=== PATIENT | male | born 1975 | race Caucasian/White ===

== ENCOUNTER 2017-06-01 11:07 | Outpatient (CLI) | payer OTHER | END 2017-06-01 11:08 | disposition home or self-care (01) | LOC: SC 11:07 | PROVIDERS: ATTEND Internal Medicine Pulmonary Disease | DX: G47.33 Obstructive sleep apnea (adult) (pediatric) (principal) | CPT/HCPCS: 99203; 99212 ==

== ENCOUNTER 2018-07-04 14:59 | Outpatient (CLI) | payer OTHER | END 2018-07-04 15:00 | disposition home or self-care (01) | LOC: SC 14:59 | PROVIDERS: ATTEND Internal Medicine Pulmonary Disease | DX: G47.33 Obstructive sleep apnea (adult) (pediatric) (principal) | CPT/HCPCS: 99212; 99213 ==

== ENCOUNTER 2020-09-06 15:59 | Outpatient (CLI) | payer OTHER ==
--- NOTE | 2020-09-06 16:36 | SLEEP CARE CONSULTATION ---
Information from patient questionnaire entered by Oralia Fink. I have reviewed and concur with the information entered by Oralia Fink. This document represents the service I personally performed and the decisions made by me, Pao Real ARNP. History of Present Illness Service Date and Time: 09/06/2020 1559 Previous diagnosis: Moderate, Obstructive Sleep Apnea-Hypopnea Syndrome AHI: 28.5 (In 2016) Reason for follow up: annual Equipment type: BiPAP Equipment obtained from: [facility] (getting supplies as needed) Mask style: Nasal Backup mask available: Yes (old mask) Last cushion change: 2 weeks ago Prior sleep studies: Yes Year and Where: 2016 [facility] HPI additional information: ИВАН ROMERO was diagnosed to have moderate, AHI 28.5, obstructive sleep apnea- hypopnea syndrome and returned today for BIPAP therapy annual follow-up. CPAP Compliance Data - Data Reviewed with Patient Average duration of nightly device use: 6 hours 2 minutes Compliance rate %: 98 Current pressure setting (cmH2O): 14/7 Average residual AHI: 1.8 Subjective Patient concerns: reports: aerophagia (occasional, once a week maybe). denies: mask discomfort, air blowing in eyes, mask leak noise, condensation in mask/hose, nasal congestion, dry mouth, nose, throat, epistaxis, other Observed to snore while using device: No Current pressure setting perceived as: comfortable On therapy, patient: reports: sleeping better, awakening more refreshed, being more awake and alert during the day, more rested overall. denies: drowsiness while driving Initial [place] Sleepiness Scale score: 5 (In 2018) Current [place] Sleepiness Scale score: 6 Allergies and Home Medications Home medication list reviewed: Yes (no new meds) Review of Systems Review of systems same as previous: No (Took bone fragment in skin off right elbow area; ganglion cyst removed) Physical Exam Heart Rate: 88 O2 Saturation: 97 Height: 5 ft 8 in Weight: 214 lb 9.6 oz Body Mass Index: 32.6 BMI Classification: Obese Impression and Plan 1. Obstructive Sleep Apnea-Hypopnea Syndrome, moderate, with good treatment compliance and good apnea control. On BIPAP therapy, the patient has better sleep quality and is more rested overall. Patient is satisfied with his treatment and intends to continue BIPAP therapy long-term. It looks like he is eligible for an update of his device in October of this year and patient was informed of this. He will contact us if he would like to update his machine at that time. Patient has lost about 10 pounds and is trying to continue to lose weight. He has been making better food choices and increasing his activity. I encouraged him to continue to try to lose weight. Patient's apnea severity and rationale for treatment to reduce apnea, improve sleep quality and reduce cardiovascular and cerebrovascular events was reviewed. I also reviewed the benefit of consistent device use of BIPAP for hypertension, cardiac disease, and gastric reflux. * Continue BIPAP pressure at 14/7 cmH2O * Notify me if snoring with mask or feeling that the pressure is too much or too little * Continue to try to lose weight * Call this office if any problems using BIPAP * Return for follow up in 1 year, or sooner if concerns arise Counseling Topics: Spare mask, Weight loss health impact Visit Type: In Office Time Spent with Patient (minutes): 16 Provider Statement: I spent 100% of the Face to Face Visit with the patient with greater than 50% spent counseling the patient and coordination of care.
== END 2020-09-06 16:00 | disposition home or self-care (01) ==
LOC: SC 15:59
PROVIDERS: ATTEND Nurse Practitioner Family
DX: G47.33 Obstructive sleep apnea (adult) (pediatric) (principal); E66.9 Obesity, unspecified; Z68.32 Body mass index [BMI] 32.0-32.9, adult
CPT/HCPCS: 99212

== ENCOUNTER 2021-11-12 16:01 | Outpatient (CLI) | payer OTHER ==
[2021-11-12 16:40] VITALS: BP 160/100
--- NOTE | 2021-11-12 16:40 | SLEEP CARE CONSULTATION ---
Information from patient questionnaire entered by Susan Castillo. I have reviewed and concur with the information entered by Susan Castillo. This document represents the service I personally performed and the decisions made by me, Pao Real ARNP. History of Present Illness Service Date and Time: 11/12/2021 1601 Previous diagnosis: Moderate, Obstructive Sleep Apnea-Hypopnea Syndrome AHI: 28.5 (In 2015) Reason for follow up: annual (LAST SEEN 09/18) Equipment type: BiPAP (RESMED) Equipment obtained from: [facility] (getting supplies as needed) Mask style: Nasal Backup mask available: Yes (other mask) Last cushion change: 1 week Prior sleep studies: Yes Year and Where: 2015 [facility] Lab HPI additional information: ИВАН ROMERO was diagnosed to have moderate, AHI 28.5, obstructive sleep apnea- hypopnea syndrome and returned today for BIPAP therapy annual follow-up. Sleep Study - Results Prior sleep studies: Yes Year and Where: 2015 [facility] CPAP Compliance Data - Data Reviewed with Patient Average duration of nightly device use: 6 hours, 16 minutes Compliance rate %: 99 (05/17/21 to 11/12/21; 179/180 days used) Current pressure setting (cmH2O): 14/7, 4 cmH2O support Average residual AHI: 1.9 Average large leak: 7.6 L/min Subjective Missed days of use due to: reports: other (power outages) Patient concerns: reports: aerophagia (excessive gas at night; improves with drinking water before bed). denies: mask discomfort, air blowing in eyes, mask leak noise, condensation in mask/hose, nasal congestion, dry mouth, nose, throat, epistaxis Observed to snore while using device: No Current pressure setting perceived as: comfortable On therapy, patient: reports: sleeping better, awakening more refreshed, being more awake and alert during the day, more rested overall. denies: drowsiness while driving Initial [place] Sleepiness Scale score: 5 (In 2018) Current [place] Sleepiness Scale score: 3 (11/12/21) Allergies and Home Medications Drug allergies reviewed: Yes (NKDA) Home medication list reviewed: Yes (no changes) Review of Systems Review of systems same as previous: Yes (no changes) Physical Exam Vital signs obtained and entered by: N.BYNG, MA Blood Pressure: 160/100 (left arm ) Cuff size: regular Heart Rate: 84 O2 Saturation: 97 Height: 5 ft 8 in Weight: 207 lb Weight change since last visit: 7 lb loss Body Mass Index: 31.4 BMI Classification: Obese Impression and Plan 1. Obstructive Sleep Apnea-Hypopnea Syndrome, moderate, with good treatment compliance and good apnea control. On BIPAP therapy, the patient has better sleep quality and is more rested overall. Patient states he has had some mild bloating in the morning and excess gas at night. He states if he drinks water before going to bed he does not have this as much. He was encouraged to monitor this and we will see if we need to make any changes once he gets a new machine. He last update his [employer] in 10/2015. The patients CPAP is over 5 years old and of reasonable use. Thus, the CPAP will be updated. A DWO prescription will be made. Compliance guidelines for new device and follow up discussed. Patient's apnea severity and rationale for treatment to reduce apnea, improve sleep quality and reduce cardiovascular and cerebrovascular events was reviewed. I also reviewed the benefit of consistent device use of BIPAP for hypertension, cardiac disease and gastric reflux. 2. Obesity, unspecified. Currently patients BMI is 31.4. Patient has lost 7 pounds since his last visit. He states he is focusing on it and is trying to lose weight with diet and exercise. Obesity increases the risk of apnea, CPAP pressure requirements and overall health risks especially cardiovascular and diabetes. Thus patient is advised to continue to try to lose weight. 3. Elevated blood pressure in patient with hypertension. Patient's blood pressure today was elevated at 160/100. He denies chest pain, shortness of breath, headaches or dizziness. He states it has been elevated when he is at the doctor's office but when he takes it at home at rest it is in 130s over 80s. Patient was advised to monitor his blood pressure and to report back to his PCP. He voiced understanding. * Continue BIPAP pressure at 14/7 cmH2O * Update BIPAP * Update supplies * Notify me if snoring with mask or feeling that the pressure is too much or too little * Continue to try to lose weight * Call this office if any problems using BIPAP * Return for follow up one month after obtaining new device, or sooner if concerns arise Counseling Topics: Spare mask, Weight loss health impact Visit Type: In Office Time Spent with Patient (minutes): 22 Provider Statement: I spent 100% of the Face to Face Visit with the patient with greater than 50% spent counseling the patient and coordination of care.
== END 2021-11-12 16:02 | disposition home or self-care (01) ==
LOC: SC 16:01
PROVIDERS: ATTEND Nurse Practitioner Family
DX: G47.33 Obstructive sleep apnea (adult) (pediatric) (principal); E66.9 Obesity, unspecified; Z68.31 Body mass index [BMI] 31.0-31.9, adult; I10 Essential (primary) hypertension
CPT/HCPCS: 99212; 99213

== ENCOUNTER 2023-02-02 13:24 | Outpatient (CLI) | payer OTHER ==
--- NOTE | 2023-02-02 13:54 | Sleep Patient Instructions ---
Sleep Center Visit Summary - Patient Visit Information Reason for Visit: Annual Visit - Patient Instructions Additional Instructions: You will continue with BIPAP therapy with pressure set at 14/7 cmH2O. A supply prescription will be updated with your DME. We encourage you to continue to try to lose weight. Please follow up with the sleep care office in 1 year. - Clinic Information Contact: [facility] [address] [place] [address] [email or web address] T: [phone]
--- NOTE | 2023-02-02 13:56 | SLEEP CARE CONSULTATION ---
Information from patient questionnaire entered by Veronica Frey. I have reviewed and concur with the information entered by Veronica Frey. This document represents the service I personally performed and the decisions made by me, Pao Real ARNP. History of Present Illness Service Date and Time: 02/02/2023 1324 Previous diagnosis: Moderate, Obstructive Sleep Apnea-Hypopnea Syndrome AHI: 28.5 (In 2015) Reason for follow up: annual (LAST SEEN 10/2021) Equipment type: BiPAP (RESMED AirCurve 10 s/u ) Equipment obtained from: [facility] (getting supplies as needed) Mask style: Nasal Backup mask available: Yes Last cushion change: 1-2 weeks Prior sleep studies: Yes Year and Where: 2015 [facility] HPI additional information: ИВАН ROMERO was diagnosed to have moderate, AHI 28.5, obstructive sleep apnea- hypopnea syndrome and returned today for BIPAP therapy annual follow-up. Sleep Study - Results Prior sleep studies: Yes Year and Where: 2015 [facility] CPAP Compliance Data - Data Reviewed with Patient Average duration of nightly device use: 6 HRS 38 MINS Compliance rate %: 99 (11/05/2022-02/02/2023; 89/90 days used) Current pressure setting (cmH2O): 14/7 Average residual AHI: 2 Central apnea: 0.8 Obstructive apnea: 0.9 Average large leak: 3.7 L/min Subjective Patient concerns: denies: aerophagia, mask discomfort, air blowing in eyes, mask leak noise, condensation in mask/hose, nasal congestion, dry mouth, nose, throat, epistaxis Observed to snore while using device: No Current pressure setting perceived as: comfortable On therapy, patient: reports: sleeping better, awakening more refreshed, being more awake and alert during the day, more rested overall. denies: drowsiness while driving Initial [place] Sleepiness Scale score: 5 (In 2018) Current [place] Sleepiness Scale score: 3 (02/02/23) Allergies and Home Medications Known drug allergies: No Drug allergies reviewed: Yes Home medication list reviewed: Yes (Lisinopril) Review of Systems Review of systems same as previous: No (hypertension) Physical Exam Vital signs obtained and entered by: VERONICA Clayton MA Blood Pressure: 126/70 (LEFT ARM) Cuff size: regular Heart Rate: 94 O2 Saturation: 95 Height: 5 ft 8 in Weight: 225 lb 12.8 oz Body Mass Index: 34.3 BMI Classification: Obese Impression and Plan 1. Obstructive Sleep Apnea-Hypopnea Syndrome, moderate, with good treatment compliance and good apnea control. On BIPAP therapy, the patient has better sleep quality and is more rested overall. He obtained a new device that was ordered last year states it is working well. He says the pressure is comfortable and he has significant improvement of his sleep apnea. He states he uses his CPAP every night. Patient's apnea severity and rationale for treatment to reduce apnea, improve sleep quality and reduce cardiovascular and cerebrovascular events was reviewed. I also reviewed the benefit of consistent device use of BIPAP for hypertension, cardiac disease and gastric reflux. 2. Obesity, unspecified. Currently patients BMI is 34.3. Obesity increases the risk of apnea, BIPAP pressure requirements and overall health risks especially cardiovascular and diabetes. Thus patient is advised to lose weight. * Continue BIPAP pressure at 14/7 cmH2O with 4 cmH2O pressure support * Update supply prescription * Notify me if snoring with mask or feeling that the pressure is too much or too little * Attempt to lose weight * Call this office if any problems using BIPAP * Return for follow up in 1 year, or sooner if concerns arise Counseling Topics: Spare mask, Weight loss health impact Prescriptions: Device supplies Follow up with Sleep Care in: 1 year Visit Type: In Office Time Spent with Patient (minutes): 20 Provider Statement: I spent 100% of the Face to Face Visit with the patient with greater than 50% spent counseling the patient and coordination of care.
[2023-02-02 14:42] VITALS: BP 126/70; O2SAT 95
== END 2023-02-02 13:25 | disposition home or self-care (01) ==
LOC: SC 13:24
PROVIDERS: ATTEND Nurse Practitioner Family
DX: G47.33 Obstructive sleep apnea (adult) (pediatric) (principal); E66.9 Obesity, unspecified; Z68.34 Body mass index [BMI] 34.0-34.9, adult
CPT/HCPCS: 99212; 99213